=== PATIENT | female | born 1970 | race Caucasian/White ===

== ENCOUNTER 2017-03-14 13:06 | Emergency (ER) ==
[2017-03-14 13:10] VITALS: TEMP 98.5; BMI 21.4
[2017-03-14] MEDS ORDERED: TORADOL IM STA (13:33)
[2017-03-14] MEDS ORDERED: ZOFRAN 4 MG/2 ML IM STA (13:33)
--- NOTE | 2017-03-14 13:36 | ED.PDOC ---
General ED Provider: Dr. MARSHA SPENCE Chief Complaint: Headache Stated Complaint: Hurting head since morning, typical headache, lights make is worse. Time Seen by Physician: 13:34 Mode of Arrival: Walk-In Information Source: Patient Primary Care Provider: BRITTANEY ARTEAGA Nursing and Triage Documentation Reviewed and Agree: Yes Neurological Complaint Exam - Headache Complaint/Exam Onset: Gradual Symptoms Are: Still present Timing: Constant Episodes Lasting: Seconds Worst Headache Ever: No Initial Severity: Moderate Current Severity: Moderate Location: Right, Left, Frontal Character: Reports: Dull, Throbbing Aggravating: Reports: Bright lights Alleviating: Reports: None Associated Signs and Symptoms: Denies: Dizziness, Seizure, Nausea, Vomiting, Sinus pressure, Fever, Neck pain, Neck stiffness, Decreased LOC, Visual changes Related History: Reports: Similar episode Related Surgical History: Reports: None SAH Risk Factors: Reports: None Meningitis Risk Factors: Reports: None SDH Risk Factors: Reports: None Temporal Arteritis Risk Factors: Reports: None Normal Head CT Within Last 12 Months: No Fundoscopic Exam: Present: Normal Findings Sinus Tenderness: Present: None TMJ Tenderness: Present: None Meningeal Signs Positive: No Pain on Passive Flexion-Positive Kernig's: No ROM Limited In: No Limitiations Focal Weakness: Present: None Focal Sensory Loss: Present: None Gait: Normal Differential Diagnoses: Migraine Review of Systems - Review Of Systems Constitutional: Reports: No symptoms Eyes: Reports: No symptoms Ears, Nose, Mouth, Throat: Reports: No symptoms Respiratory: Reports: No symptoms Cardiac: Reports: No symptoms GI: Reports: No symptoms : Reports: No symptoms Musculoskeletal: Reports: No symptoms Skin: Reports: No symptoms Neurological: Reports: Headache Endocrine: Reports: No symptoms Hematologic/Lymphatic: Reports: No symptoms All Other Systems: Reviewed and Negative Past Medical History - Past Medical History Previously Healthy: Yes Endocrine: Reports: None Cardiovascular: Reports: None Respiratory: Reports: None Hematological: Reports: None Gastrointestinal: Reports: None Genitourinary: Reports: None Neuro/Psych: Reports: Migraine Musculoskeletal: Reports: None Cancer: Reports: None Last Menstrual Period: now - Surgical History General Surgical History: Reports: Other (leep procedure) - Family History Family History: Reports: None - Social History Smoking Status: Current every day smoker Smoking Cessation Counseling Time: > 3 min - 10 min Hx Substance Use: No Alcohol Screening: None Physical Exam - Physical Exam Appearance: Ill-appearing Eyes: RENE, EOMI, Conjunctiva clear ENT: Ears normal, Nose normal, Oropharynx normal Respiratory: Airway patent, Breath sounds clear, Breath sounds equal, Respirations nonlabored Cardiovascular: RRR, Pulses normal, No rub, No murmur GI/: Soft, Nontender, No masses, Bowel sounds normal, No Organomegaly Musculoskeletal: Normal strength, ROM intact, No edema, No calf tenderness Skin: Warm, Dry, Normal color Neurological: Sensation intact, Motor intact, Reflexes intact, Cranial nerves intact, Alert, Oriented Psychiatric: Affect appropriate, Mood appropriate Interpretation - Radiology Interpretation Radiology Interpretation By: Radiologist Radiology Results: Negative Critical Care Note - Critical Care Note Total Time (mins): 20 Course - Course Orders, Labs, Meds: Orders Category Date Time Status Ketorolac Tromethamine [Toradol] MEDS 03/14/17 13:33 Discontinued 30 mg IM ONCE STA Ondansetron HCl/Pf [Zofran 4 mg/2 ml] MEDS 03/14/17 13:33 Discontinued 4 mg IM ONCE STA CT HEAD W/O CONTRAST Stat RADS 03/14/17 13:34 Completed Medications Discontinued Medications Generic Name Dose Route Start Last Admin Trade Name Freq PRN Reason Stop Dose Admin Ketorolac Tromethamine 30 mg 03/14/17 13:33 03/14/17 13:39 Toradol IM 03/14/17 13:34 30 mg ONCE STA Administration Ondansetron HCl 4 mg 03/14/17 13:33 03/14/17 13:40 Zofran 4 Mg/2 Ml IM 03/14/17 13:34 4 mg ONCE STA Administration Vital Signs: Temp Pulse Resp BP Pulse Ox 03/14/17 13:07 98.5 F 90 16 179/111 H 98 Departure - Departure Time of Disposition: 13:39 Disposition: HOME SELF-CARE Discharge Problem: Migraine Sinusitis Qualifiers: Sinusitis location: maxillary Chronicity: acute Recurrence: recurrent Qualified Code(s): J01.01 - Acute recurrent maxillary sinusitis Instructions: Migraine Headache (ED), Sinusitis (ED) Condition: Good Pt referred to PMD for follow-up: Yes Additional Instructions: Increase hydration F/u with PMD Prescriptions: Amoxicillin/Potassium Clav [Augmentin 500-125 mg Tab] 1 tab PO Q12HR #20 tablet Butalb/Acetaminophen/Caffeine [Fioricet] 1 each PO TID #14 tablet Ondansetron [Zofran Odt] 4 mg PO Q8H #20 tab.rapdis Allergies/Adverse Reactions: Allergies No Known Allergies Allergy (Verified 03/14/17 13:09) Home Medications: Ambulatory Orders Amoxicillin/Potassium Clav [Augmentin 500-125 mg Tab] 1 tab PO Q12HR #20 tablet 03/14/17 Butalb/Acetaminophen/Caffeine [Fioricet] 1 each PO TID #14 tablet 03/14/17 Ondansetron [Zofran Odt] 4 mg PO Q8H #20 tab.rapdis 03/14/17 Disposition Discussed With: Patient
--- NOTE | 2017-03-14 14:10 | CT ---
EXAM: CT Head HISTORY: Headache COMPARISON: 11/11/2012 TECHNIQUE: CT head performed without contrast FINDINGS: There is no mass effect, midline shift, or intracranial hemmorhage. Kiser white differenti ation is preserved. There is no extra-axial collection. The ventricles, sulci, and basal cisterns a re patent and symmetric. There is no depressed calvarial fracture. The mastoid air cells are clear. There is moderate mucosal thickening of the maxillary and ethmoid air cells with fluid levels bilate ral maxillary sinus. IMPRESSION: 1. No acute intracranial abnormality. 2. Sinusitis with fluid levels likely [id number].
[2017-03-14] MEDS ORDERED: MORPHINE 2 MG/ML SYRINGE IM STA (14:34)
[2017-03-14 15:29] VITALS: BP 160/80
== END 2017-03-14 15:28 | disposition home or self-care (01) ==
LOC: ED 13:06
DX: G43.909 Migraine, unspecified, not intractable, without status migrainosus (principal); J01.01 Acute recurrent maxillary sinusitis; F17.210 Nicotine dependence, cigarettes, uncomplicated
CPT/HCPCS: 96372; 99283